=== PATIENT | female | born 1955 | race Caucasian/White ===

== ENCOUNTER 2019-07-20 14:41 | Inpatient (IN) | payer BC ==
--- NOTE | 2019-07-20 15:28 | RAD ---
Exam: Chest one view HISTORY:Seizure Comparison: None FINDINGS: Lungs: Interstitial prominence bilaterally, most pronounced at each lung base Cardiac silhouette:Accentuated by portable technique Pulmonary vessels: Mild central vascular congestion Pleural Spaces: Clear Pneumothorax: None Osseous abnormalities: None of acuity. IMPRESSION: Bilateral interstitial opacities, along with accentuated cardiac silhouette and prominent pulmonary vasculature. Correlate for fluid status.
[2019-07-20 15:34] LABS: Hemoglobin 14.1 g/dL (12.0-16.0); Mean Corpuscular Hemoglobin 31.4 pg (27.0-31.0); Mean Corpuscular Volume 92.3 fL (78.0-98.0); Mean Platelet Volume 6.6 fL (7.4-10.4); Platelet Count 100 thou/uL (130-400); RBC Distribution Width 13.8 % (11.5-14.5); Red Blood Cell (RBC) Count 4.51 mill/uL (4.20-5.40)
--- NOTE | 2019-07-20 15:34 | CT ---
CT head noncontrast HISTORY: Syncope. FINDINGS: No comparison. There is no evidence of acute intracranial hemorrhage or infarct. Mild chron ic ischemic small vessel disease and diffuse cortical atrophy. There is no mass effect or shift of midline structures. Visualized paranasal sinuses remain well aerated. IMPRESSION: No acute intracranial abnormalities are demonstrated.
[2019-07-20 15:49] LABS: #Lymphocytes 0.9 thou/uL (1.20-3.40); #Monocytes 0.4 thou/uL (0.11-0.59); #Neutrophils 4.7 thou/uL (1.40-6.50); %Basophils 0.3 % (0.0-1.0); %Eosinophils 0.3 % (0.0-10.0); %Lymphocytes 15.4 % (21.0-51.0); %Monocytes 5.9 % (0.0-10.0); %Neutrophils 78.1 % (42.0-75.0); Platelet Morphology Comment Appears Decreased; RBC Morphology Normal
[2019-07-20 15:51] LABS: ALT (SGPT) 26 U/L (8-55); AST (SGOT) 32 U/L (5-34); Acetaminophen Less than 6.0 mcg/mL (10.0-30.0); Albumin 4.2 g/dL (3.4-4.8); Alcohol Less than 10 mg/dL (Less than 10); Alkaline Phosphatase 33 U/L (40-110); Anion Gap 14 mmol/L (10-20); BUN (Urea Nitrogen) 10 mg/dL (9.8-20.1); Bilirubin, Total 0.6 mg/dL (0.2-1.2); Calc. Creatinine Clearance 0 mL/min (70-130); Calcium 8.8 mg/dL (7.8-10.44); Carbon Dioxide 26 mmol/L (23-31); Chloride 102 mmol/L (98-107); Estimated GFR-MDRD 62; Globulin 2.2 g/dL (2.4-3.5); Glucose 223 mg/dL (80-115); Protein, Total 6.4 g/dL (6.0-8.3); Salicylate Less than 8.0 mg/dL (15.0-30.0); Sodium 140 mmol/L (136-145)
[2019-07-20 15:56] LABS: Potassium 2.4 mmol/L (3.5-5.1)
[2019-07-20] MEDS ORDERED: Magnesium 2 GM/50 ML BAG (IN WATER) ONE (16:45)
[2019-07-20] MEDS ORDERED: Sodium Chloride 0.9% 1,000 ML IV SCH (17:00)
[2019-07-20] MEDS ORDERED: Potassium Chloride 20 MEQ in Premix Bag 1 BAG IVPB SCH ×2 (17:00→22:45)
[2019-07-20] MEDS ORDERED: Potassium Chloride 20 MEQ TAB PO SCH (17:00)
[2019-07-20 17:14] LABS: Bacteria/HPF 3+ HPF (None Seen); Bilirubin Negative (Negative); Blood, Urine Negative (Negative); Clarity Turbid (Clear); Glucose, Urine (Dipstick) 30 mg/dL (Negative); Leukocyte 25 Leu/uL (Negative); Nitrite Negative (Negative); Protein, Urine (Dipstick) 20 mg/dL (Neg-Trace); RBC/HPF 0-3 HPF (0-3); Urobilinogen Normal mg/dL (Less than 2)
[2019-07-20] MEDS ORDERED: Lorazepam 2 MG/ML VIAL SLOW IVP PRN (17:58)
[2019-07-20] MEDS ORDERED: Dextrose 5% in Water 1,000 ML IV PRN (18:01)
[2019-07-20] MEDS ORDERED: HumaLOG 300 UNITS/3 ML VIAL SC PRN (18:01)
[2019-07-20] MEDS ORDERED: Dextrose 50% Abboject 50 ML SYRINGE SLOW IVP PRN (18:01)
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
[2019-07-20 18:21] LABS: Medtox Reader # READER 1
[2019-07-20 18:22] LABS: Amphetamine Not Detected (NotDetected); Barbiturates Screen Not Detected (NotDetected); Benzodiazepine Screen Detected (NotDetected); Cocaine Metabolite Screen Not Detected (NotDetected); Medtox Control Line Valid? VALID (VALID); Methadone Not Detected (NotDetected); Methamphetamine Not Detected (NotDetected); Opiate Screen Not Detected (NotDetected); Oxycodone Screen Not Detected (NotDetected); Phencyclidine (PCP) Not Detected (NotDetected); THC/Cannabinoid Screen Detected (NotDetected); Tricyclic Screen Detected (NotDetected)
[2019-07-20] MEDS ORDERED: Multivitamins, Adult 10 ML, Folic Acid 1 MG, Thiamine HCl 100 MG in Dextrose 5 %-0.45 %... IV SCH (18:30)
[2019-07-20] MEDS ORDERED: Nicotine 21 MG PATCH TD SCH (21:00)
--- NOTE | 2019-07-20 22:41 | MRI ---
MRI BRAIN WITH AND WITHOUT IV CONTRAST: 07/20/19 HISTORY: Seizure disorder. Patient reportedly had convulsions earlier today and was unresponsive for ten minut es. COMPARISON: Noncontrast CT head. FINDINGS: No signal abnormalities are seen within the brain. There is no evidence of an acute infarction. No ab normal areas of enhancement are seen after the administration of intravenous contrast. The hippocampal formations are symmetric and normal in appearance bilaterally without signal abnormal ity or enhancement. Septum pellucidum and third ventricle are in the midline. Mild cerebral and cerebellar volume loss is present. The ventricular system is normal in size, shape and position. There is mild mucosal thickening in the ethmoidal air cells bilaterally as well as inferior aspect of each maxillary antrum. The orbits and skull have a normal appearance. Appropriate flow voids are demonstrated at the base of the brain. Incidental note is made of a partia lly empty sella turcica. IMPRESSION: No acute intracranial abnormality is demonstrated. POS: [facility]
[2019-07-20] MEDS: Famotidine 20 MG TAB PO SCH (22:52)
[2019-07-21 05:29] LABS: Hemoglobin A1c 5.9 % (4.0-6.0)
[2019-07-21 05:34] LABS: #Basophils 0.1 thou/uL (0.0-0.2); #Eosinphils 0.1 thou/uL (0.0-0.7); #Lymphocytes 1.5 thou/uL (1.20-3.40); #Monocytes 0.4 thou/uL (0.11-0.59); #Neutrophils 2.5 thou/uL (1.40-6.50); %Basophils 1.2 % (0.0-1.0); %Eosinophils 1.3 % (0.0-10.0); %Lymphocytes 34.1 % (21.0-51.0); %Monocytes 7.7 % (0.0-10.0); %Neutrophils 55.6 % (42.0-75.0); Hemoglobin 12.5 g/dL (12.0-16.0); Mean Corpuscular HGB CONC 34.2 g/dL (32.0-36.0); Mean Corpuscular Hemoglobin 31.9 pg (27.0-31.0); Mean Corpuscular Volume 93.2 fL (78.0-98.0); Mean Platelet Volume 6.9 fL (7.4-10.4); Platelet Count 95 thou/uL (130-400); RBC Distribution Width 13.6 % (11.5-14.5); Red Blood Cell (RBC) Count 3.91 mill/uL (4.20-5.40); White Blood Cell (WBC) Count 4.5 thou/uL (4.8-10.8)
[2019-07-21 05:42] LABS: Anion Gap 12 mmol/L (10-20); BUN (Urea Nitrogen) 8 mg/dL (9.8-20.1); Calc. Creatinine Clearance 108 mL/min (70-130); Calcium 8.1 mg/dL (7.8-10.44); Carbon Dioxide 27 mmol/L (23-31); Chloride 107 mmol/L (98-107); Estimated GFR-MDRD 77; Glucose 138 mg/dL (80-115); Magnesium 1.4 mg/dL (1.6-2.6); Sodium 143 mmol/L (136-145)
[2019-07-21 05:44] LABS: Potassium 2.6 mmol/L (3.5-5.1)
[2019-07-21] MEDS ORDERED: Potassium Chloride 40 MEQ in Sodium Chloride 0.9% 250 ML 250 ML IVPB SCH ×2 (06:15→12:00)
[2019-07-21] MEDS ORDERED: Magnesium Sulfate 4 GM in Sodium Chloride 0.9% 250 ML 250 ML IVPB SCH (08:15)
[2019-07-21] MEDS ORDERED: Lorazepam 2 MG/ML VIAL SLOW IVP PRN (08:16)
[2019-07-21] MEDS ORDERED: Potassium Chloride 20 MEQ TAB PO SCH (08:30)
[2019-07-21 08:58] LABS: Phosphorus 2.7 mg/dL (2.3-4.7)
[2019-07-21] MEDS: Multivit, Therapeutic 1 TAB PO SCH (09:35)
[2019-07-21] MEDS: Folic Acid 1 MG TAB PO SCH (09:35)
[2019-07-21] MEDS: Thiamine 100 MG TAB PO SCH (09:35)
[2019-07-21] MEDS: Famotidine 20 MG TAB PO SCH (09:35)
[2019-07-21] MEDS ORDERED: cloNIDine 0.1 MG TAB PO PRN (09:50)
[2019-07-21] MEDS ORDERED: Lorazepam 1 MG TAB PO PRN ×2 (09:51→13:55)
[2019-07-21] MEDS: cefTRIAXone\\ROCEPHIN 1 GM in Sodium Chloride 0.9% 100 ML IVPB SCH (12:44)
--- NOTE | 2019-07-21 12:59 | CON ---
DATE OF TELEMEDICINE CONSULTATION: 07/21/2019 CHIEF COMPLAINT: Seizures. HISTORY OF PRESENT ILLNESS: The patient's history was given by her daughter. The patient was observed to have a seizure, which lasted about 10 minutes. It was described as convulsion with gurgling and she remained unresponsive. There was no wetting. No urinary incontinence or bowel incontinence. She never had issues before this. She was somewhat confused postictally. There is no tongue biting described. PREVIOUS MEDICAL HISTORY: Diabetes, hypertension, hypothyroidism, and alcohol use. Per her chart, the patient was drinking heavily. She reported that last drink was 1 week ago to the primary admitting physician. PAST SURGICAL HISTORY: None recent. FAMILY HISTORY: Brother and sister are healthy. She has 2 daughters who are healthy. Father committed suicide at age 62. Mother at 83 from Alzheimer' s. SOCIAL HISTORY: She smokes half pack a day for 40 years. She is independent and lives by herself. Does drink alcohol regularly. CURRENT REVIEW OF SYSTEMS: PULMONARY: Negative for shortness of breath or cough. GI: Negative for nausea, vomiting, or diarrhea. NEUROLOGIC: Positive for seizure. CARDIAC: Negative for chest pain. DERMATOLOGIC: Negative for any skin lesions. OPHTHALMOLOGIC: Negative for any vision issues. LABORATORY DATA: White count 4.5, hemoglobin 12.5, hematocrit 36.5, and platelet count 95. Chemistries; sodium 143, potassium 2.6, chloride 107, bicarb 27, BUN 8, creatinine 0.76, glucose 138. Her MRI scan was done, it is negative for any acute ischemic event or a tumor. PHYSICAL EXAMINATION: VITAL SIGNS: Temperature 98.4, pulse 74, respiratory rate 18, and blood pressure 186/83. GENERAL APPEARANCE: Well-built, well-nourished lady, who is comfortable in bed. CHEST: Clear vesicular breathing. CARDIOVASCULAR: S1, S2 heard. ABDOMEN: Soft. NEUROLOGIC: Higher intellectual functions normal oriented to time, place, person. Appropriate conversations. Cranial nerves 2 through 12, pupils reactive to light bilaterally at 2 mm. Tongue midline. No atrophy noted. Normal sensation of face bilaterally. No facial asymmetry bilaterally. Normal hearing to finger rub bilaterally. Tongue midline. Normal elevation of palate. Motor; bulk normal, tone normal, strength 5/5 throughout in upper and lower extremities in iliopsoas, hamstrings, quadriceps, ankle dorsiflexion, plantar flexion, deltoid, biceps, triceps, wrist extension and flexion, finger extension and flexion. Deep tendon reflexes 1+ right lower extremity, negative in the left lower extremity, 2+ in the upper extremities. Sensory normal to touch bilaterally. Cerebellar, finger-to- nose is normal and [id number] normal. IMPRESSION AND RECOMMENDATIONS: The patient with a history of witnessed seizure. At this time, her MRI is negative. Her medical workup is also negative. She is negative except for urinary infection. She is diabetic and has urinary infection with seizure, could be due to fluctuation in her blood glucose levels in the setting of a urinary tract infection; therefore, I do not think we need to start her on antiepileptic agents at this time. I advised the patient and her family that if it is a first seizure, we do not need to start her on any antiepileptic agent. If she has a second event , we can consider adding antiseizure medication. I will see her as needed. Job ID: [id number] [id number]
--- NOTE | 2019-07-21 13:53 | PDOC.HOSPP ---
- Subjective Encounter Date: 07/21/19 Encounter Time: 09:00 Subjective: Patient seen and examined for Gen weakness/Seizure. No new seizure episode. No new focal deficits. No new complaints. No overnight events - Objective Vital Signs & Weight: Vital Signs (12 hours) Temp Pulse Resp BP Pulse Ox 07/21/19 12:06 97.5 F L 73 20 154/74 H 93 L 07/21/19 07:29 98.4 F 74 18 186/83 H 98 07/21/19 05:20 98 F 71 18 170/80 H 97 Weight Weight 202 lb I&O: 07/20/19 07/21/19 07/22/19 06:59 06:59 06:59 Intake Total 960 Balance 960 Result Diagrams: 07/21/19 04:58 07/21/19 04:58 EKG Reviewed by me: Yes (Tele SR) Hospitalist ROS - Review of Systems Respiratory: denies: cough, dry, shortness of breath, hemoptysis, SOB with excertion, pleuritic pain, sputum, wheezing, other Cardiovascular: denies: chest pain, palpitations, orthopnea, paroxysmal noc. dyspnea, edema, light headedness, other - Medication Medications: Active Medications Generic Name Dose Route Start Last Admin Trade Name Freq PRN Reason Stop Dose Admin Clonidine 0.1 mg 07/21/19 09:50 07/21/19 10:08 Catapres PO 0.1 mg Q4H PRN Administration SBP Greater Than 180 Famotidine 20 mg 07/20/19 21:00 07/21/19 09:35 Pepcid PO 20 mg BID BESSY Administration Folic Acid 1 mg 07/21/19 09:00 07/21/19 09:35 Folvite PO 1 mg DAILY BESSY Administration Ceftriaxone Sodium 1 gm/ 100 mls @ 200 mls/hr 07/21/19 08:30 07/21/19 12:44 Sodium Chloride IVPB 100 mls Q24HR BESSY Administration Multivitamins 1 tab 07/21/19 09:00 07/21/19 09:35 Theragran PO 1 tab DAILY BESSY Administration Nicotine 21 mg 07/20/19 21:00 07/20/19 22:52 Nicoderm Patch TD 21 mg Q24HR BESSY Administration Thiamine HCl 100 mg 07/21/19 09:00 07/21/19 09:35 Thiamine PO 100 mg DAILY BESSY Administration - Exam General Appearance: NAD Heart: RRR, no gallops, no rubs, normal peripheral pulses Respiratory: CTAB, no wheezes, no rales, no ronchi Gastrointestinal: soft, non-tender, non-distended, normal bowel sounds Extremities: no cyanosis, no edema Neurological: normal sensation to touch, no new deficit Psychiatric: normal affect, A&O x 3 Hosp A/P - Plan DVT proph w/SCDs Gen weakness New onset seizure Severe Hypomagnesaemia (0.7 on admission) (POA) Severe Hypokalemia (2.4 on admission) (POA) Recent gastroenteritis Chronic alcoholism Cannabis abuse UTI DM2 Hypothyroidism HTN Depression Tobacco dep PLAN: Treat UTI Replace electrolytes Await Neuro input Seizure precautions Add alcohol withdrawal protocol Cont sliding scale Resume home meds
[2019-07-21] MEDS ORDERED: Nicotine 14 MG PATCH TD PRN (13:54)
[2019-07-21] MEDS ORDERED: Lisinopril 20 MG TAB PO SCH (14:00)
[2019-07-21] MEDS: Potassium Chloride 20 MEQ TAB PO SCH ×2 (14:20→17:26)
[2019-07-21] MEDS ORDERED: Potassium Chloride 40 MEQ in Sodium Chloride 0.45% 1,000 ML IV SCH (16:00)
[2019-07-21] MEDS: Lisinopril 20 MG TAB PO SCH (20:47)
[2019-07-21] MEDS: Verapamil 120 MG TAB PO SCH (20:48)
[2019-07-21] MEDS ORDERED: Amitriptyline HCl 25 MG TAB PO SCH (21:00)
[2019-07-22 05:22] LABS: PTT 28.2 SEC (22.9-36.1); Prothrombin Time 13.3 SEC (12.0-14.7)
[2019-07-22 05:33] LABS: #Eosinphils 0.1 thou/uL (0.0-0.7); #Lymphocytes 1.4 thou/uL (1.20-3.40); #Monocytes 0.3 thou/uL (0.11-0.59); #Neutrophils 1.8 thou/uL (1.40-6.50); %Eosinophils 1.8 % (0.0-10.0); %Lymphocytes 37.5 % (21.0-51.0); %Monocytes 9.1 % (0.0-10.0); %Neutrophils 50.6 % (42.0-75.0); Hemoglobin 12.1 g/dL (12.0-16.0); Mean Corpuscular HGB CONC 32.9 g/dL (32.0-36.0); Mean Corpuscular Hemoglobin 31.1 pg (27.0-31.0); Mean Corpuscular Volume 94.5 fL (78.0-98.0); Mean Platelet Volume 7.2 fL (7.4-10.4); Platelet Count 91 thou/uL (130-400); RBC Distribution Width 13.7 % (11.5-14.5); Red Blood Cell (RBC) Count 3.91 mill/uL (4.20-5.40); White Blood Cell (WBC) Count 3.6 thou/uL (4.8-10.8)
[2019-07-22 05:43] LABS: Anion Gap 10 mmol/L (10-20); BUN (Urea Nitrogen) 10 mg/dL (9.8-20.1); Calc. Creatinine Clearance 94 mL/min (70-130); Calcium 7.9 mg/dL (7.8-10.44); Carbon Dioxide 27 mmol/L (23-31); Chloride 110 mmol/L (98-107); Estimated GFR-MDRD 66; Glucose 151 mg/dL (80-115); Magnesium 1.9 mg/dL (1.6-2.6); Potassium 4.1 mmol/L (3.5-5.1); Sodium 143 mmol/L (136-145)
[2019-07-22] MEDS ORDERED: Levothyroxine Sodium 88 MCG TAB PO SCH (06:00)
[2019-07-22] MEDS ORDERED: Glimepiride 2 MG TAB PO SCH (07:30)
[2019-07-22] MEDS ORDERED: Glimepiride 1 MG TAB PO SCH (08:00)
[2019-07-22] MEDS: cefTRIAXone\\ROCEPHIN 1 GM in Sodium Chloride 0.9% 100 ML IVPB SCH (08:09)
[2019-07-22] MEDS: Thiamine 100 MG TAB PO SCH (08:10)
[2019-07-22] MEDS: Folic Acid 1 MG TAB PO SCH (08:10)
[2019-07-22] MEDS: Lisinopril 20 MG TAB PO SCH (08:10)
[2019-07-22] MEDS: Multivit, Therapeutic 1 TAB PO SCH (08:10)
[2019-07-22] MEDS ORDERED: Aspirin 81 mg Enteric Coated Tablet PO SCH (09:00)
[2019-07-22] MEDS ORDERED: FLUoxetine HCl 20 MG CAP PO SCH (09:00)
[2019-07-22] MEDS: Verapamil 120 MG TAB PO SCH (09:14)
[2019-07-22 12:03] VITALS: TEMP 97.9
[2019-07-22 12:43] VITALS: BP 169/80
[2019-07-22 14:23] VITALS: BMI 29.8
--- NOTE | 2019-07-22 16:14 | DIS ---
DATE OF ADMISSION: 07/20/2019 DATE OF DISCHARGE: 07/22/2019 DISCHARGE DISPOSITION: Home. FOLLOWUP: 1. The patient was advised to follow up with [facility]. 2. Follow up with Neurology, Dr. Street in 2 weeks. 3. Seizure precautions. 4. Fall precaution was recommended. No driving until cleared by MD. 5. Basic metabolic profile after 3 to 4 days is recommended. 6. The patient was advised to follow up on final urine cultures. DISCHARGE MEDICATIONS: 1. Omnicef 300 mg b.i.d. for next 3 days. 2. Lisinopril 20 mg b.i.d. 3. Multivitamin, folic acid, thiamine every day. 4. Verapamil 120 mg daily. 5. Levothyroxine 88 mcg daily. 6. Metformin 1000 mg b.i.d. 7. Aspirin 81 mg daily. 8. Elavil 50 mg at bedtime. 9. Vitamin D3 of 2000 units daily. 10. Fenofibrate 160 mg daily. 11. Prozac 20 mg daily. The patient was seen and examined on the day of discharge. Denies any new complaints. No new focal findings. The patient did not have any seizures during this hospital stay. INPATIENT VIDEO SURVEILLANCE TECHNICIAN: Neurology, Dr. Gates. BRIEF HOSPITAL COURSE: The patient is a 64-year-old female, who presented to the emergency room on 20 July 2019 with a witnessed seizure episode. Please refer to the history and physical for further details. The patient was admitted to the hospital with a diagnosis of seizure, which was witnessed by her family. A CT scan of the brain was negative. MRI of the brain was negative for acute intracranial findings. She was found to have significantly abnormal electrolytes with potassium of 2.4 and magnesium of 0.7. Her magnesium on the day of discharge was 1.9 with potassium 4.1. Hydrochlorothiazide has been discontinued. Her urine drug screen was positive for cannabinoid and benzos. Urinalysis showed 11 to 20 wbc's with 3+ bacteria. Urine culture showed E coli. Urine sensitivities are pending at this time. She was placed on IV antibiotics that has been transitioned to oral. She appears stable for discharge. Alcohol cessation was emphasized. FINAL DIAGNOSES: 1. Generalized weakness with new episode of seizure, probably secondary to electrolyte abnormalities. 2. Severe hypomagnesemia of 0.7 on admission. 3. Severe hypokalemia with potassium of 2.4 on admission. 4. Recent acute gastroenteritis, resolved. 5. Chronic alcoholism. 6. Cannabis abuse. 7. Escherichia coli urinary tract infection. The patient was advised to follow up on final urine cultures. 8. Diabetes mellitus, type 2. 9. Hypothyroidism. 10. Hypertension. 11. Depression. 12. Tobacco dependence. The patient was counseled. 13. Chronic kidney disease, stage 2. 14. Thrombocytopenia, probably chronic. PLAN: Plan was discussed with the patient in detail. She stated understanding. Job ID: [id number]
[2019-07-23] MEDS ORDERED: Potassium Chloride 20 MEQ TAB PO SCH (08:00)
== END 2019-07-22 16:54 | disposition home or self-care (01) | DRG 641 ==
LOC: ERS 14:41 → OBSVTOIN 17:08 → 2SW 17:08
PROVIDERS: ADMIT Emergency Medicine; ATTEND Emergency Medicine
PROC: 3E0234Z Introduction of Serum, Toxoid and Vaccine into Muscle, Percutaneous Approach (ICD-10-PCS; principal; 2019-07-21)
DX: E87.6 Hypokalemia (principal); N39.0 Urinary tract infection, site not specified; E83.42 Hypomagnesemia; R56.9 Unspecified convulsions; F10.20 Alcohol dependence, uncomplicated; F12.10 Cannabis abuse, uncomplicated; B96.20 Unspecified Escherichia coli [E. coli] as the cause of diseases classified elsewhere; E03.9 Hypothyroidism, unspecified; I12.9 Hypertensive chronic kidney disease with stage 1 through stage 4 chronic kidney disease, or unspecified chronic kidney disease; E11.22 Type 2 diabetes mellitus with diabetic chronic kidney disease; F32.9 Major depressive disorder, single episode, unspecified; F17.200 Nicotine dependence, unspecified, uncomplicated; N18.2 Chronic kidney disease, stage 2 (mild); D69.6 Thrombocytopenia, unspecified; K52.9 Noninfective gastroenteritis and colitis, unspecified; Z79.899 Other long term (current) drug therapy; Z79.82 Long term (current) use of aspirin; Z79.84 Long term (current) use of oral hypoglycemic drugs; Z23 Encounter for immunization; Z79.890 Hormone replacement therapy
CPT/HCPCS: 36415; 36416; 70450; 70553; 71045; 80048; 80053; 80306; 80307; 81003; 81015; 82947; 83036; 83735; 84100; 84443; 84484; 85025; 85610; 85730; 87077; 87086; 87186; 90471; 90732; 93005; 95816; 95819; G0009; J0696; J3411; J3475; J3480; J3490; J7042; J7050

== ENCOUNTER 2023-03-24 09:30 | Outpatient (CLI) | payer MEDICARE | END 2023-03-24 09:31 | disposition home or self-care (01) | LOC: BICMAMMO 09:30 | PROVIDERS: ATTEND Physician Assistant | DX: Z12.31 Encounter for screening mammogram for malignant neoplasm of breast (principal); N64.89 Other specified disorders of breast | CPT/HCPCS: 77063; 77067 ==

== ENCOUNTER 2023-03-28 12:41 | Outpatient (CLI) | payer MEDICARE | END 2023-03-28 12:42 | disposition home or self-care (01) | LOC: BICMAMMO 12:41 | PROVIDERS: ATTEND Physician Assistant | DX: R92.1 Mammographic calcification found on diagnostic imaging of breast (principal) | CPT/HCPCS: 77065; G0279 ==

== ENCOUNTER 2023-09-29 13:27 | Outpatient (CLI) | payer MEDICARE | END 2023-09-29 13:28 | disposition home or self-care (01) | LOC: BICMAMMO 13:27 | PROVIDERS: ATTEND Physician Assistant | DX: R92.1 Mammographic calcification found on diagnostic imaging of breast (principal) | CPT/HCPCS: 77065; G0279 ==